=== PATIENT | male | born 1930 | race Caucasian/White ===

== ENCOUNTER 2016-09-14 09:03 | Outpatient (CLI) | payer MEDICARE, OTHER ==
[2013-07-31 09:19] VITALS: BP 117/78
[2016-09-14 09:36] LABS: BASOPHILS % 0.5 (0.0-1.5); EOSINOPHILS % 2.6 % (0.0-6.8); MEAN CORPUSCULAR HEMOGLOBIN 33.3 pg (28.0-34.0); MEAN CORPUSCULAR VOLUME 99.3 fl (80.0-100.0); MONOCYTES % 9.5 % (0.0-11.0); NEUTROPHILS # 2.6 # k/uL (1.4-7.7)
[2016-09-14 09:52] LABS: eGFR (African) > 60; eGFR (Non-African) > 60
== END 2016-09-14 09:04 ==
LOC: LAB 09:03
PROVIDERS: ATTEND Nurse Practitioner
DX: G40.209 Localization-related (focal) (partial) symptomatic epilepsy and epileptic syndromes with complex partial seizures, not intractable, without status epilepticus (principal); R42 Dizziness and giddiness; R20.9 Unspecified disturbances of skin sensation; Q28.2 Arteriovenous malformation of cerebral vessels
CPT/HCPCS: 36415; 80053; 80186; 85025

== ENCOUNTER 2016-12-28 08:32 | Outpatient (CLI) | payer MEDICARE, OTHER ==
[2013-07-31 09:19] VITALS: BP 117/78
== END 2016-12-28 08:33 ==
LOC: LAB 08:32
PROVIDERS: ATTEND Nurse Practitioner
DX: E53.8 Deficiency of other specified B group vitamins (principal)
CPT/HCPCS: 36415; 82607; 83921

== ENCOUNTER 2017-03-17 07:46 | Outpatient (CLI) | payer MEDICARE ==
[2013-07-31 09:19] VITALS: BP 117/78
[2017-03-17 08:11] LABS: BASOPHILS % 0.9 (0.0-1.5); EOSINOPHILS % 4.4 % (0.0-6.8); MEAN CORPUSCULAR HEMOGLOBIN 33.6 pg (28.0-34.0); MEAN CORPUSCULAR VOLUME 99.6 fl (80.0-100.0); MONOCYTES % 8.6 % (0.0-11.0); NEUTROPHILS # 2.4 # k/uL (1.4-7.7)
[2017-03-17 08:43] LABS: eGFR (African) > 60; eGFR (Non-African) > 60
== END 2017-03-17 07:47 ==
LOC: LAB 07:46
PROVIDERS: ATTEND Nurse Practitioner
DX: Z79.899 Other long term (current) drug therapy (principal); G40.209 Localization-related (focal) (partial) symptomatic epilepsy and epileptic syndromes with complex partial seizures, not intractable, without status epilepticus
CPT/HCPCS: 36415; 80053; 80186; 82607; 83921; 85025

== ENCOUNTER 2017-09-11 08:22 | Outpatient (CLI) | payer MEDICARE, OTHER ==
[2013-07-31 09:19] VITALS: BP 117/78
[2017-09-11 08:53] LABS: BASOPHILS % 0.3 (0.0-1.5); EOSINOPHILS % 1.4 % (0.0-6.8); MEAN CORPUSCULAR HEMOGLOBIN 33.6 pg (28.0-34.0); MEAN CORPUSCULAR VOLUME 100.5 fl (80.0-100.0); MONOCYTES % 6.6 % (0.0-11.0); NEUTROPHILS # 2.6 # k/uL (1.4-7.7)
[2017-09-11 09:31] LABS: eGFR (African) > 60; eGFR (Non-African) > 60
== END 2017-09-11 08:23 ==
LOC: LAB 08:22
PROVIDERS: ATTEND Nurse Practitioner
DX: Z79.899 Other long term (current) drug therapy (principal)
CPT/HCPCS: 36415; 80053; 80186; 85025

== ENCOUNTER 2019-03-25 08:13 | Outpatient (CLI) | payer MEDICARE, OTHER ==
[2013-07-31 09:19] VITALS: BP 117/78
[2019-03-25 08:34] LABS: BASOPHILS % 0.4 % (0.0-1.5); NEUTROPHILS # 2.7 # k/uL (1.4-7.7)
[2019-03-25 08:43] LABS: eGFR (Non-African) > 60
== END 2019-03-25 08:18 ==
LOC: LAB 08:13
PROVIDERS: ATTEND Nurse Practitioner
DX: G40.109 Localization-related (focal) (partial) symptomatic epilepsy and epileptic syndromes with simple partial seizures, not intractable, without status epilepticus (principal); R20.9 Unspecified disturbances of skin sensation; R63.4 Abnormal weight loss; Z79.899 Other long term (current) drug therapy
CPT/HCPCS: 36415; 80053; 80186; 85025